=== PATIENT | male | born 1975 | race Hispanic/Latino ===

== ENCOUNTER 2019-10-29 07:13 | Emergency (ER) | payer SELFPAY ==
[~2019-10-29] VITALS: Ht 167.6 cm; Wt 110.0 kg
[~2019-10-29 07:13] MED LIST: DOXYCYCL HYC100 M3 OR; [UNRECOGNIZED DRUG - REMARK]
[2019-10-29] MEDS ORDERED: TAM75CAP PO (07:32)
[2019-10-29 07:48] VITALS: BP 129/90
== END 2019-10-29 07:48 | disposition home or self-care (01) | DRG 153 ==
LOC: ED 07:13
DX: J06.9 Acute upper respiratory infection, unspecified (principal)

== ENCOUNTER 2020-09-11 08:13 | Emergency (ER) | payer SELFPAY ==
[~2020-09-11] VITALS: Ht 167.6 cm; Wt 109.0 kg
[~2020-09-11 08:13] MED LIST changes: +TAM75CAP PO
[2020-09-11] MEDS ORDERED: METFORMIN500 M2 PO (08:31)
[2020-09-11] MEDS ORDERED: LISINOPRIL20 MG PO (08:31)
[2020-09-11 10:22] VITALS: BP 141/94
== END 2020-09-11 10:22 | disposition home or self-care (01) | DRG 605 ==
LOC: ED 08:13
DX: S00.81XA Abrasion of other part of head, initial encounter (principal); E11.9 Type 2 diabetes mellitus without complications; I10 Essential (primary) hypertension; F17.200 Nicotine dependence, unspecified, uncomplicated; W31.9XXA Contact with unspecified machinery, initial encounter; Y99.0 Civilian activity done for income or pay